=== PATIENT | female | born 1950 | race Caucasian/White ===

== ENCOUNTER → 2017-05-28 | Outpatient (CLI) | payer MEDICARE, BC ==
[~2017-05-28] MED LIST: ATENOLOL25 MG PO; CALCIUM600 MG PO; COUMADIN2.5 MG PO; EFFEXOR XR37.5 MG PO; EVISTA60 MG PO; FLECAINIDE ACE100 MG PO; KAPIDEX60 MG PO; KEPPRA1000 MG PO; LIPITOR20 MG PO; METFORMIN500 MG PO; MULTAQ400 MG PO; NATURE'S BLE1000 MCG PO; NEURONTIN800 MG PO; PREVACID 30MG C30 M1 PO; SINGULAIR10 MG PO; VITAMIN B COMPL; VITAMIN B COMPL PO; VITAMIN B-1100 M1 PO; VITAMIN D35000 IU PO
== END ==
LOC: COP 09:00
DX: Z45.2 Encounter for adjustment and management of vascular access device (principal)
CPT/HCPCS: J1642

== ENCOUNTER 2017-06-24 11:35 | Outpatient (CLI) | payer MEDICARE, BC | END 2017-06-24 12:45 | disposition home or self-care (01) | LOC: COP 11:35 | DX: Z45.2 Encounter for adjustment and management of vascular access device (principal) ==